=== PATIENT | female | born 1990 | race Caucasian/White ===

== ENCOUNTER 2017-02-02 18:37 | Emergency (ER) | payer MEDICAID | END 2017-02-02 22:17 | disposition home or self-care (01) | LOC: ER1 18:37 | DX: O99.711 Diseases of the skin and subcutaneous tissue complicating pregnancy, first trimester (principal); L23.7 Allergic contact dermatitis due to plants, except food; Z3A.01 Less than 8 weeks gestation of pregnancy | CPT/HCPCS: 99282; J1100; Q0177 ==